=== PATIENT | male | born 1980 | race Caucasian/White ===

== ENCOUNTER 2024-10-22 03:49 | Emergency (ER) | payer SELFPAY ==
[~2024-10-22] VITALS: Ht 172.7 cm; Wt 79.4 kg
[2024-10-22 03:56] VITALS: BP 116/74; TEMP 98.4; O2SAT 98
[2024-10-22 04:54] LABS: PLATELET COUNT (AUTO) 106 K/uL (150-450); RED BLOOD CELL COUNT(AUTO) 5.24 MIL/uL (4.5-6.0); RED CELL DISTRIBUTION WIDTH 14.0 % (11.5-15.0); WHITE BLOOD COUNT (AUTO) 5.9 K/uL (4.3-11.0)
[2024-10-22 05:17] LABS: ALCOHOL, BLOOD < 3 mg/dL (0-10); ASPARTATE AMINOTRANSFERASE 27 U/L (15-37); CALCIUM, SERUM 9.1 mg/dL (8.5-10.1); CREATININE 1.1 mg/dL (0.6-1.3); SODIUM SERUM 139 mmol/L (136-145); TOTAL PROTEIN, SERUM 7.3 g/dL (6.4-8.2); UREA NITROGEN, BLOOD 25 mg/dL (7-18)
[2024-10-22 05:20] LABS: NT-PRO BNP 9 pg/mL (0-125)
== END 2024-10-22 05:52 | disposition home or self-care (01) ==
LOC: ER 03:51
DX: R00.2 Palpitations (principal); R06.02 Shortness of breath; R07.9 Chest pain, unspecified; Z60.2 Problems related to living alone
CPT/HCPCS: 36415; 71045-TC; 80053-TC; 83880; 84484-TC; 85025-TC; G0480